=== PATIENT | male | born 1955 | race Caucasian/White ===

== ENCOUNTER 2017-10-17 08:20 | Emergency (ER) | payer OTHER ==
--- NOTE | 2017-10-17 09:15 | RAD ---
2 VIEWS CHEST: Date: 10/17/17 COMPARISON: 09/23/15. HISTORY: Fever and cough. FINDINGS: There is no pneumothorax, pleural fluid, focal consolidation, or alveolar edema. Heart and mediastina l contours are grossly unremarkable. There is mild perihilar and bibasilar interstitial prominence which could signify mild interstitial e zaheer or mild interstitial inflammatory change on the basis of viral/interstitial pneumonitis. IMPRESSION: Mild perihilar and bibasilar interstitial prominence with no focal consolidation or alveolar edema. POS: [facility]
== END 2017-10-17 09:30 | disposition home or self-care (01) ==
LOC: SCSER 08:20
DX: J18.9 Pneumonia, unspecified organism (principal); F17.210 Nicotine dependence, cigarettes, uncomplicated
CPT/HCPCS: 71046

== ENCOUNTER 2018-07-06 21:22 | Observation (INO) | payer OTHER ==
[2018-07-06] MEDS ORDERED: Ketorolac Tromethamine 30 MG/ML VIAL ONE (22:01)
[2018-07-06] MEDS ORDERED: diphenhydrAMINE 50 MG/ML VIAL ONE (22:01)
[2018-07-06] MEDS ORDERED: Metoclopramide HCl 10 MG/2 ML VIAL ONE (22:01)
[2018-07-06 22:04] LABS: #Basophils 0.2 thou/uL (0.0-0.2); #Eosinphils 0.2 thou/uL (0.0-0.7); #Monocytes 0.9 thou/uL (0.11-0.59); #Neutrophils 8.6 thou/uL (1.40-6.50); %Basophils 1.3 % (0.0-1.0); %Eosinophils 1.4 % (0.0-10.0); %Lymphocytes 23.2 % (21.0-51.0); %Monocytes 6.9 % (0.0-10.0); %Neutrophils 67.2 % (42.0-75.0); Hemoglobin 17.1 g/dL (14.0-18.0); Mean Corpuscular HGB CONC 34.4 g/dL (32.0-36.0); Mean Corpuscular Hemoglobin 30.9 pg (27.0-31.0); Mean Corpuscular Volume 89.8 fL (78.0-98.0); Mean Platelet Volume 6.5 fL (7.4-10.4); Platelet Count 207 thou/uL (130-400); RBC Distribution Width 11.9 % (11.5-14.5); Red Blood Cell (RBC) Count 5.53 mill/uL (4.70-6.10); White Blood Cell (WBC) Count 12.8 thou/uL (4.8-10.8)
[2018-07-06 22:15] LABS: ALT (SGPT) 30 U/L (8-55); AST (SGOT) 18 U/L (5-34); Albumin 4.4 g/dL (3.4-4.8); Alkaline Phosphatase 72 U/L (40-150); Anion Gap 17 mmol/L (10-20); BUN (Urea Nitrogen) 17 mg/dL (8.4-25.7); Bilirubin, Total 0.6 mg/dL (0.2-1.2); Calc. Creatinine Clearance 0 mL/min (70-130); Calcium 9.5 mg/dL (7.8-10.44); Carbon Dioxide 21 mmol/L (23-31); Chloride 104 mmol/L (98-107); Estimated GFR-MDRD Greater than 90; Globulin 3.2 g/dL (2.4-3.5); Glucose 102 mg/dL (80-115); Potassium 3.9 mmol/L (3.5-5.1); Protein, Total 7.6 g/dL (5.8-8.1); Sodium 138 mmol/L (136-145)
[2018-07-06 22:16] LABS: CKMB 1.5 ng/mL (0-6.6); Troponin I Less than 0.010 ng/mL (< 0.028)
--- NOTE | 2018-07-06 22:27 | CT ---
CT BRAIN 07/06/18 HISTORY: Headache. Noncontrast enhanced CT images of the brain obtained. The brain is unremarkable. No evidence of intra cranial masses, hemorrhages, strokes or contusions seen. IMPRESSION: Normal CT brain. POS: [facility]
[2018-07-07] MEDS ORDERED: Magnesium Sulfate 2 GM/NS 0.9% 50 ML BAG ONE (00:23)
[2018-07-07] MEDS ORDERED: hydrALAZINE 20 MG/ML VIAL ONE (01:06)
[2018-07-07 03:08] VITALS: BMI 35.2
[2018-07-07] MEDS ORDERED: hydrALAZINE 20 MG/ML VIAL SLOW IVP PRN ×2 (03:10→12:43)
[2018-07-07] MEDS ORDERED: Ondansetron PF 4 MG/2 ML Vial IVP PRN (03:11)
[2018-07-07] MEDS ORDERED: Ondansetron ODT 4 MG TAB PO PRN (03:11)
[2018-07-07] MEDS: Acetaminophen 325 MG TAB PO PRN ×2 (03:30→09:00)
[2018-07-07] MEDS ORDERED: Promethazine HCl 25 MG in Sodium Chloride 0.9% 50 ML IVPB PRN (04:17)
[2018-07-07] MEDS ORDERED: Fioricet 325/50/40 mg Tablet PO PRN (04:18)
[2018-07-07 06:05] LABS: #Eosinphils 0.1 thou/uL (0.0-0.7); #Lymphocytes 1.5 thou/uL (1.20-3.40); #Monocytes 0.8 thou/uL (0.11-0.59); #Neutrophils 11.9 thou/uL (1.40-6.50); %Basophils 0.1 % (0.0-1.0); %Eosinophils 0.4 % (0.0-10.0); %Lymphocytes 10.4 % (21.0-51.0); %Monocytes 5.7 % (0.0-10.0); %Neutrophils 83.4 % (42.0-75.0); Hemoglobin 15.6 g/dL (14.0-18.0); Mean Corpuscular HGB CONC 27.3 g/dL (32.0-36.0); Mean Corpuscular Volume 95.1 fL (78.0-98.0); Mean Platelet Volume 6.5 fL (7.4-10.4); Platelet Count 268 thou/uL (130-400); RBC Distribution Width 12.3 % (11.5-14.5); White Blood Cell (WBC) Count 14.3 thou/uL (4.8-10.8)
[2018-07-07 06:16] LABS: Anion Gap 12 mmol/L (10-20); BUN (Urea Nitrogen) 19 mg/dL (8.4-25.7); Calc. Creatinine Clearance 134 mL/min (70-130); Calcium 9.2 mg/dL (7.8-10.44); Carbon Dioxide 27 mmol/L (23-31); Chloride 101 mmol/L (98-107); Estimated GFR-MDRD Greater than 90; Glucose 119 mg/dL (80-115); Potassium 4.1 mmol/L (3.5-5.1); Sodium 136 mmol/L (136-145)
[2018-07-07] MEDS: Atorvastatin Calcium 40 MG TAB PO SCH (08:11)
[2018-07-07] MEDS: Lisinopril 10 MG TAB PO SCH (08:12)
[2018-07-07] MEDS: Famotidine/PF 20 mg/2ml Vial SLOW IVP SCH ×2 (08:12→20:01)
[2018-07-07] MEDS: Famotidine 20 MG TAB PO SCH ×2 (08:12→20:01)
[2018-07-07] MEDS: Amlodipine 10 MG TAB PO SCH (09:00)
--- NOTE | 2018-07-07 10:29 | HP ---
CHIEF COMPLAINT: Severe headache and high blood pressure. HISTORY OF PRESENT ILLNESS: This is a 63-year-old male with no significant past medical history pres enting with severe headache and hyperglycemia. The patient was seen at [facility] and the patie nt was given antihypertensives; however, has not been able to fully control blood pressure. The maryan ent is not complaining of headache which is all resolved and therefore ED physician is transferring t he patient to to be further evaluated. At this point, the patient states that he is still having severe headache, nausea, vomiting, otherwise does not have any other associated symptoms. REVIEW OF SYSTEMS: Positive for nausea, headache, vomiting, otherwise as documented in the HPI, all other systems were reviewed and negative. PAST MEDICAL HISTORY: No significant past medical history. PAST SURGICAL HISTORY: The patient had appendectomy, tonsillectomy and hernia repair. FAMILY HISTORY: Reviewed and noncontributory to this visit. SOCIAL HISTORY: The patient smokes 2 packs per day. The patient denies alcohol use and patient jacquie es any illicit drug use. PSYCHIATRIC HISTORY: The patient has no psych history. ALLERGIES: No known drug allergies. MEDICATIONS: Patient takes aspirin and atorvastatin. PHYSICAL EXAMINATION: VITAL SIGNS: The patient's blood pressure in the [facility] ED was 200 systolic. GENERAL: The patient is awake, alert, oriented x3, not in any acute distress. HEENT: Normocephalic, atraumatic. Pupils are equal, round, and reactive to light. Extraocular move ments are intact. There is no scleral icterus. There is no conjunctival pallor. Mucous membranes a re moist. NECK: Supple, full range of motion. Trachea is midline. RESPIRATORY: Clear to auscultation bilaterally. No wheezing, no rales, no rhonchi is appreciated. CARDIOVASCULAR: Positive S1, S2, regular rate and rhythm. No murmurs, no gallops or rubs appreciate d. ABDOMEN: Obese abdomen. Soft, nontender, nondistended. EXTREMITIES: Patient has 5/5 upper extremity strength and 5/5 lower extremity strength with good pul ses bilateral upper and lower extremities. The patient has no edema. NEUROLOGIC: Cranial nerves II-XII grossly intact. No neurologic deficits noted. The patient is hav ing no gross neurologic deficits. The patient is able to have full sentences without any difficultie s. LABORATORY DATA: WBC 7.8, hemoglobin 17, hematocrit 49.7, platelets 207. Sodium 138, potassium is 3 .9, chloride 104, bicarbonate is 21, BUN is 17, creatinine is 0.82, glucose 102. IMAGING: CT of the head is negative for any acute intracranial pathology. ASSESSMENT AND PLAN: 1. This is a 63-year-old male being admitted for hypertensive urgency. Currently, patient's blood p ressure systolic is controlled. We will continue to monitor the patient closely. We will give the p atient p.r.n. pain medications. We will continue to monitor the patient closely regarding patient's blood pressure, we will put on p.r.n. hydralazine and will start amlodipine and hydrochlorothiazide t o help better control patient's blood pressure. 2. Headache. At this point, patient complained of severe headache. We are going to get MRI of the head to rule out any intracranial pathology. We will start patient on Fioricet and we will continue to monitor the patient closely. 3. Deep venous thrombosis and gastrointestinal prophylaxis. DISPOSITION: We consulted neurologist. We will follow up with Neurology regarding their recommendat ions and we will follow up the results of the MRI.
--- NOTE | 2018-07-07 12:49 | MRI ---
MRI BRAIN WITH AND WITHOUT IV CONTRAST: HISTORY: Headache. Nausea, vomiting, and hypertension. CORRELATION: The previous day's CT scan. FINDINGS: No restricted diffusion is seen. No evidence of infarct, hemorrhage, mass, midline shift, or abnorma l extraaxial fluid collections is seen. There is no evidence of abnormal post contrast enhancement. Multiple foci of T2 prolongation in the periventricular white matter are consistent with chronic sma ll vessel ischemic disease. A small, old lacunar infarct is seen in the left cerebellar hemisphere. The visualized paranasal sinuses and mastoid air cells are well aerated. No tonsillar herniation is seen. IMPRESSION: 1. No evidence of acute intracranial process or mass. 2. Chronic small vessel ischemic disease. POS: [facility]
[2018-07-07] MEDS ORDERED: Metoclopramide HCl 10 MG/2 ML VIAL IVP PRN (13:00)
[2018-07-07] MEDS ORDERED: HYDROcodone/Acetaminophen 5/325 mg Tablet PO PRN ×2 (13:01)
[2018-07-07] MEDS ORDERED: Morphine 2 MG/ML SYRINGE SLOW IVP PRN (14:18)
[2018-07-07] MEDS: hydrALAZINE 25 MG TAB PO SCH ×2 (14:19→20:01)
[2018-07-07] MEDS: tiZANidine HCl 4 MG TAB PO SCH ×2 (14:19→20:00)
[2018-07-07] MEDS ORDERED: Gadobenate Dimeglumine 529 MG/1 ML (20ML VIAL) ONE (14:30)
[2018-07-07] MEDS ORDERED: Dexamethasone 10 MG/ML VIAL SLOW IVP SCH (17:15)
[2018-07-07] MEDS ORDERED: Valproate Sodium 1,000 MG in Sodium Chloride 0.9% 100 ML IVPB SCH (17:15)
[2018-07-07] MEDS: Metoclopramide HCl 10 MG/2 ML VIAL IVP SCH (17:50)
[2018-07-07] MEDS: Dihydroergotamine Mesylate 1 MG/ML AMP SLOW IVP SCH (17:57)
--- NOTE | 2018-07-07 18:31 | CON ---
DATE OF CONSULTATION: 07/07/2018 NEUROLOGY CONSULTATION CONSULTING PHYSICIAN: Hospital Service. IMPRESSION: Intractable headache which sounds consistent with a migraine. PLAN: [place] protocol. Mr. Modi is a 63-year-old man who has had a 2-week long history of headache. He reports that the pain is bilateral and associated with nausea, dizziness, vomiting and light sensitivity. He was give n a migraine protocol in the emergency room, but did not respond. He was subsequently transferred he re for admission. He had an MRI of the brain done which was unremarkable as CBC and comprehensive me tabolic panel were both unremarkable. He has been afebrile. He was given morphine and reports the h eadache is somewhat better. PAST MEDICAL HISTORY: Unremarkable. PAST SURGICAL HISTORY: Appendectomy, hernia repair and tonsillectomy. SOCIAL HISTORY: Positive for tobacco use. ALLERGIES: None. FAMILY HISTORY: Noncontributory. REVIEW OF SYSTEMS: No confusion, seizures, lateralized weakness or numbness. PHYSICAL EXAMINATION: GENERAL: He is somewhat overweight, middle age man, appears to be in some distress. VITAL SIGNS: Blood pressure 175/87, pulse 60, respirations 19, temperature 98. HEENT: Unremarkable other than light sensitivity. NEUROLOGIC: He is alert and appropriate. His speech is fluent and clear. His exam is nonfocal. IMAGING DATA: Reviewed. SUMMARY: Given the constellation of symptoms, I suspect that this is most likely migraine. Hopefull y, he will respond to this treatment protocol.
[2018-07-08] MEDS: Metoclopramide HCl 10 MG/2 ML VIAL IVP SCH ×3 (00:03→13:30)
[2018-07-08] MEDS: Dihydroergotamine Mesylate 1 MG/ML AMP SLOW IVP SCH ×3 (00:06→13:30)
[2018-07-08] MEDS: hydrALAZINE 25 MG TAB PO SCH (08:27)
[2018-07-08] MEDS: Atorvastatin Calcium 40 MG TAB PO SCH (08:27)
[2018-07-08] MEDS: tiZANidine HCl 4 MG TAB PO SCH (08:28)
[2018-07-08] MEDS: Amlodipine 10 MG TAB PO SCH (08:29)
[2018-07-08] MEDS: Famotidine 20 MG TAB PO SCH (08:29)
[2018-07-08] MEDS: Lisinopril 10 MG TAB PO SCH (08:30)
[2018-07-08] MEDS: Famotidine/PF 20 mg/2ml Vial SLOW IVP SCH (10:05)
[2018-07-08 11:36] VITALS: BP 134/63; TEMP 97.5
--- NOTE | 2018-07-08 13:02 | DIS ---
DATE OF ADMISSION: 07/07/2018 DATE OF DISCHARGE: 07/08/2018 PRIMARY CARE PHYSICIAN: NEUROLOGIST: David Zelaya M.D. DISCHARGE DIAGNOSES: 1. Migraine variant. 2. Intractable headache. 3. Nausea and vomiting. 4. Accelerated hypertension. 5. Essential hypertension, chronic. 6. History of sinus bradycardia. 7. Ongoing tobacco abuse. CONSULTATIONS: Neurology, Dr. Zelaya. PROCEDURES: None. HISTORY AND PHYSICAL: Mr. Modi is a 63-year-old gentleman who [facility] with ongoing headache for about 2 weeks with increasing symptoms. He has not been able to sleep w ell and then developed nausea and vomiting, unable to keep any food or water down. Workup in the ER is largely unremarkable and we were called for admission. HOSPITAL COURSE: The patient was seen and examined by Dr. 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 He was started on Fioricet, which did not seem to help. Blood pressure remained elevated. He w as sent for an MRI of the brain that showed no acute intracranial abnormalities, but did show some sm all vessel ischemic changes that are chronic. I aggressively addressed his blood pressure with hydralazine, lisinopril and Norvasc. His blood pres sure overnight improved. Blood pressure this morning prior to medicines was 174, but down to 134 pos t treatment. He got one single dose of morphine yesterday. As his blood pressure got controlled, he has not had any further headaches since that time. No fevers or chills. No other complaints. He i s stable for discharge with outpatient followup. PHYSICAL EXAMINATION: The patient was seen and examined on the day of discharge. Discharge plan and disposition was discussed with the patient [id number] at the bedside with his family. DISCHARGE MEDICATIONS: New medications, 1. Amlodipine 10 mg daily. 2. Fioricet 1 p.o. q.4 hours p.r.n. 3. Hydralazine 50 mg p.o. t.i.d. 4. Zestril 10 mg daily. 5. Tizanidine 4 mg p.o. t.i.d. p.r.n. muscle spasm. Home medications to continue, Augmentin. FOLLOWUP APPOINTMENTS: 1. Dr. Pugh on 07/21/[address] Zelaya in 1-2 weeks per his clinic schedule. DISCHARGE CONDITION: Stable. DISPOSITION: Discharged to home via private vehicle. DISCHARGE ACTIVITY: As tolerated. DISCHARGE DIET: Heart healthy diet recommended.
== END 2018-07-08 14:01 | disposition home or self-care (01) ==
LOC: SCSER 21:22 → 2SW 07-07 02:27
PROVIDERS: ADMIT Internal Medicine; ATTEND Internal Medicine
DX: G43.819 Other migraine, intractable, without status migrainosus (principal); R11.2 Nausea with vomiting, unspecified; I10 Essential (primary) hypertension; F17.200 Nicotine dependence, unspecified, uncomplicated; I16.0 Hypertensive urgency; Z79.899 Other long term (current) drug therapy
CPT/HCPCS: 36415; 70450; 70553; 80048; 80053; 82553; 84484; 85025; 93005; 96365; 96366; 96367; 96375; 96376; A9579; G0378; J0360; J1100; J1110; J1200; J1885; J2270; J2405; J2550; J2765; J3475; J7050; Q0162

== ENCOUNTER 2022-03-02 10:39 | Outpatient (CLI) | payer BC ==
[2022-03-02 11:32] LABS: #Eosinphils 0.1 10x3/uL (0.0-0.5); #Neutrophils 4.3 10x3/uL (1.5-8.4); %Basophils 0.5 % (0.0-2.0); %Eosinophils 1.5 % (0.0-6.0); %Lymphocytes 35.3 % (18.0-47.0); %Monocytes 11.7 % (0.0-10.0); %Neutrophils 50.6 % (40.0-75.0); Hemoglobin 15.6 g/dL (13.5-17.5); Mean Corpuscular HGB CONC 35.9 g/dL (32.0-36.0); Mean Corpuscular Hemoglobin 33.1 pg (27.0-33.0); Mean Corpuscular Volume 92.2 fl (81.2-95.1); Mean Platelet Volume 8.7 fl (7.4-10.4); Platelet Count 227 10x3/uL (150-450); RBC Distribution Width 12.6 % (11.5-14.5); Red Blood Cell (RBC) Count 4.72 10x6/uL (4.32-5.72); White Blood Cell (WBC) Count 8.4 10x3/uL (3.5-10.5)
[2022-03-02 11:39] LABS: Anion Gap 13 mmol/L (10-20); BUN (Urea Nitrogen) 21 mg/dL (8.4-25.7); Calc. Creatinine Clearance 0 mL/min (70-130); Calcium 9.7 mg/dL (7.8-10.44); Carbon Dioxide 28 mmol/L (23-31); Chloride 102 mmol/L (98-107); Estimated GFR 68; Glucose 94 mg/dL (80-115); Potassium 4.8 mmol/L (3.5-5.1); Sodium 138 mmol/L (136-145)
== END 2022-03-02 10:40 | disposition home or self-care (01) ==
LOC: LABBT 10:39
PROVIDERS: ATTEND Orthopaedic Surgery
DX: Z01.818 Encounter for other preprocedural examination (principal); S83.241A Other tear of medial meniscus, current injury, right knee, initial encounter; S83.281A Other tear of lateral meniscus, current injury, right knee, initial encounter; Z20.822 Contact with and (suspected) exposure to COVID-19
CPT/HCPCS: 80048; 85025; 87811; 93005; 93010

== ENCOUNTER 2022-03-05 05:46 | Day surgery (SDC) | payer BC ==
[2022-03-03 13:17] VITALS: BMI 35.7
[2022-03-05] MEDS ORDERED: fentaNYL Citrate/PF 100 MCG/2 ML SYRINGE ONE (06:20)
[2022-03-05] MEDS ORDERED: Lidocaine 2% 6 ML SYR ONE (06:20)
[2022-03-05] MEDS ORDERED: EPINEPHrine 1 MG/ML AMP ONE (06:36)
[2022-03-05] MEDS ORDERED: Lidocaine 1% (PF) 30 ML VIAL ONE (06:36)
[2022-03-05] MEDS ORDERED: Bupivacaine 0.25% HCL 30 ML VIAL ONE (06:36)
[2022-03-05] MEDS ORDERED: Sodium Chloride 0.9% 100 ML ONE (06:57)
[2022-03-05] MEDS ORDERED: CEFAZOLIN 2 GM VIAL ONE (06:57)
[2022-03-05] MEDS ORDERED: Ondansetron PF 4 MG/2 ML Vial ONE (07:08)
[2022-03-05] MEDS ORDERED: Dexamethasone 20 MG/5 ML VIAL ONE (07:08)
[2022-03-05] MEDS ORDERED: Lidocaine 2% w/Epinephrine 1:200K 20 ML VIAL ONE (07:08)
[2022-03-05] MEDS ORDERED: Bupivacaine HCl 0.5%/Epinephrine 1:200,000/PF 30 ml Vial ONE (07:08)
[2022-03-05] MEDS ORDERED: PROPOFOL 200 MG/20 ML VIAL ONE (07:08)
[2022-03-05] MEDS ORDERED: Lidocaine 1% PF 5 ML VIAL ONE (07:08)
[2022-03-05] MEDS ORDERED: Ketorolac Tromethamine 30 MG/ML VIAL ONE (07:08)
== END 2022-03-05 09:45 | disposition home or self-care (01) ==
LOC: SDC 05:46
PROVIDERS: ATTEND Orthopaedic Surgery
PROC: 0SBC4ZZ Excision of Right Knee Joint, Percutaneous Endoscopic Approach (ICD-10-PCS; principal; 2022-03-05)
DX: M23.251 Derangement of posterior horn of lateral meniscus due to old tear or injury, right knee (principal); M23.203 Derangement of unspecified medial meniscus due to old tear or injury, right knee; M17.11 Unilateral primary osteoarthritis, right knee; I10 Essential (primary) hypertension; F17.210 Nicotine dependence, cigarettes, uncomplicated; Z79.899 Other long term (current) drug therapy
CPT/HCPCS: J0171; J0690; J1100; J1885; J2001; J2405; J2704; J3490; S0020